=== PATIENT | male | born 1990 | race Caucasian/White ===

== ENCOUNTER 2024-10-19 08:44 | Outpatient (REF) | payer BC, SELFPAY ==
[2024-10-19 15:45] LABS: Influenza A PCR NEGATIVE (Negative); Influenza B PCR NEGATIVE (Negative); Resp Syncy Virus RNA Qual PCR NEGATIVE (Negative); SARS COV2 PCR INHOUSE NEGATIVE (Negative)
== END 2024-10-19 08:45 | disposition home or self-care (01) ==
LOC: HO.LAB 08:44
PROVIDERS: PCP Pediatrics; Visit Provider Physician Assistant
DX: R09.89 Other specified symptoms and signs involving the circulatory and respiratory systems (principal); Z13.9 Encounter for screening, unspecified; J02.9 Acute pharyngitis, unspecified; Z03.818 Encounter for observation for suspected exposure to other biological agents ruled out
CPT/HCPCS: 0241U; 87070; 87147; 87880

== ENCOUNTER 2024-10-19 08:44 | Outpatient (AMB) | payer BC, SELFPAY ==
[2024-10-19 08:48] VITALS: BP 110/70; PULSE 76; TEMP 37.3; O2SAT 98; BMI 20.4
--- NOTE | 2024-10-19 08:48 | AM.OFFWIN_ITS ---
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 at home covid test were negative Patient Tobacco Use Status: Never used Tobacco Accompanied by: Self / Same As Patient Allergies iron Allergy (Mild, Verified 10/19/24 08:53) Hives Do you need a note to return to daycare/school/sports/work: Yes HPI HPI Comments History of Present Illness Details History - The patient is a 34-year-old male pres enting with sore throat and body aches. - Symptoms began with fatigue 4 days ago , escalating to a sore throat and body aches by 3 days ago. - No significant nausea or vomiting was experienced. - Low-grade fevers occurred, peaking at 99.8?F. - The patient took several COVID-19 test s, all of which were negative. - Morning cough and congestion were note d, with symptoms resolving throughout the day. - Lightheadedness was noted during trave l to work, but no syncopal episodes occurred. - Patient reports discomfort in the neck , worsened by swallowing, along with a fullness in the voice. Physical Exam General: Cooperative, healthy appearing, comfortable and no acute distress Orientation/consciousness: Patient oriented x3 Limitations: No limitations Head: Normal to inspection Ears: Hearing grossly normal bilaterally, external ears normal and TM's normal bilaterally Nose: Normal external nose present, Normal nares present and No nasal discharge present Face and sinus: Normal facial exam and Yes sinuses nontender Mouth: Normal oral and palatal mucosa present and moist mucous membranes Throat: Yes tonsils normal, Yes uvula midline. Posterior oropharynx erythema, no exudates noted Eyes: Appearance normal, both eyes and all related structures Neck: Normal visual inspection, slight swelling noted Respiratory: Clear to auscultation bilaterally. Normal respiratory effort, able to speak in complete sentences, no respiratory distress, not tachypneic, no tripod positioning and no use of accessory muscles Cardiovascular: Regular rate and rhythm. Normal S1 and S2 Skin: No rashes or lesions noted Neuro: Patient oriented x3, reports lightheadedness Extremities: Normal to inspection and Yes no clubbing, cyanosis or edema PFSH Social History Patient Tobacco Use Status: Never used Tobacco Review of Systems Const All systems reviewed & are unremarkable except as noted in HPI and below Physical Exam Vital Signs: Last Vital Signs Temp 99.2 F 10/19/24 08:48 Pulse 76 10/19/24 08:48 BP 110/70 10/19/24 08:48 Pulse Ox 98 10/19/24 08:48 Oxygen Delivery Method Room Air 10/19/24 08:48 BMI result Body Mass Index 20.4 Results AMB Rapid Strep AMB Rapid Strep Negative Last Edit by Ke Kimble CMA on 10/19/24 09 :07 Results Reviewed Results Reviewed: Laboratory Last Values Strep Scn Rapid Clinic Negative 10/19/24 09:06 Assessment & Plan Assessment & Plan (1) URI, acute: Code(s): J06.9 - Acute upper respiratory infection, unspecified Plan: VSS, pt well appearing and PE unremarkable/no exudates on exam. I have sent a throat culture to definitively assess for strep infection, supplementing the negative rapid test in office today. Also, influenza, COVID-19, and RSV tests will be conducted, with results anticipated by today. For acute pharyngitis and viral symptoms, I recommend ibuprofen for throat pain and acetaminophen for fever management, with the addition of warm saltwater gargles. The patient indicates he works remotely; hence no work restrictions are necessary. Pending test results will guide further course of action. Patient was informed and verbally consented to the use of an ambient scribe for clinic note documentation during this visit Orders: Orders SARS-CoV2/FLU/RSV Today R09.89 - Other specified symptoms and signs involving the circulatory and respiratory systems AMB Rapid Strep Screen Today Z13.9 - Encounter for screening, unspecified Throat Culture Today J02.9 - Acute pharyngitis, unspecified Coding Level of Care Code New Pt Level 3 (67081) Diagnoses URI, acute J06.9
--- OUTSIDE RECORDS SUMMARY | 2024-10-19 09:20 | XMS_ITS | Encounter Summary ---
Author Organization [facility] Address [address] [place] [id number] Phone Care Team Providers Care Scabbler Name Role Phone Toni Grajeda MD Primary Care Provider Unavailabl e Encounter Details Date Type Department Care Team (Late st Contact Info) Description 06/15/2012 Documentation [facility] [place] Family Medicine [address] [place] [address] Family Medicine, Physician [address] [place] [address] Social History Tobacco Use Types Packs/Day Years Used Date Smoking Tobacco: Never Assessed Sex and Gender Information Value Date Recorded Sex Assigned at Not on file Legal Sex Male 4:46 PM EDT Gender Identity Not on file Sexual Orientation Not on file documented as of this encounter Plan of Treatment Not on file documented as of this encounter Visit Diagnoses Not on filedocumented in this encounter Care Teams Scabbler Relationship Specialty Start Date End Date Toni Grajeda MD PCP - General 03/07/17 documented as of this encounter
--- OUTSIDE RECORDS SUMMARY | 2024-10-19 09:20 | XMS_ITS | Encounter Summary ---
Author Organization [facility] Address [address] [place] [address] Phone Care Team Providers Care Paper Carrier Name Role Phone Toni Grajeda MD Primary Care Provider Unavailabl e Encounter Details Date Type Department Care Team (Late st Contact Info) Description 02/08/2013 Documentation [facility] [place] [address] [place] [address] Family Medicine, Physician [address] [place] [address] Social History Tobacco Use Types Packs/Day Years [...] on filedocumented in this encounter Care Teams Paper Carrier Relationship Specialty Start Date End Date Toni Grajeda MD PCP - General 03/07/17 documented as of this encounter
--- OUTSIDE RECORDS SUMMARY | 2024-10-19 09:20 | XMS_ITS | Encounter Summary ---
Author Organization [facility] Address [address] [place] [phone] Phone Care Team Providers Care Burr Mill Operator Name Role Phone Toni Grajeda MD Primary Care Provider Unavailabl e Encounter Details Date Type Department Care Team (Late st Contact Info) Description 03/13/2017 Conversion Encounter [facility] - [address] [id number] Social History Tobacco Use Types Packs/Day Years [...] on filedocumented in this encounter Care Teams Burr Mill Operator Relationship Specialty Start Date End Date Toni Grajeda MD PCP - General 03/07/17 documented as of this encounter
--- OUTSIDE RECORDS SUMMARY | 2024-10-19 09:20 | XMS_ITS | Encounter Summary ---
Author Organization [facility] Address [address] [place] [id number] Phone Care Team Providers Care Copy Cutter Name Role Phone Toni Grajeda MD Primary Care Provider Unavailabl e Encounter Details Date Type Department Care Team (Late st Contact Info) Description 07/18/2011 Documentation [facility] [place] Family Medicine [address] [place] [address] Family Medicine, Physician [address] [place] [address] Social History Tobacco Use Types Packs/Day Years [...] on filedocumented in this encounter Care Teams Copy Cutter Relationship Specialty Start Date End Date Toni Grajeda MD PCP - General 03/07/17 documented as of this encounter
--- OUTSIDE RECORDS SUMMARY | 2024-10-19 09:20 | XMS_ITS | Clinical Summary ---
Author Organization [facility] Address [address] [place] [address] Phone Care Team Providers Care Business Banking Representative Name Role Phone Toni Grajeda MD Primary Care Provider Unavailabl e Immunizations Immunization Administration Dates Next Due DTP 11/06/1993, 3,1992,04/19 DTaP 5 12/23/1996 H1N1 07/13/2009 Hep A, ped/adol 06/08/2012 Hep B, ped/adol 1992,1992,1992 Hib (PRP-T) 06/04/1993, 3,1992,04/19 IPV 06/08/2012 Influenza Split 07/05/2010 Influenza, injectable, trivalent 07/13/2009 MMR 12/23/1996,06/04/1993 Meningococcal Conj (Menactra) MCV4P 02/07/2010 OPV 12/23/1996, 4,1992,04/19 Td (adult) (MBL), 2 Lf tetan us toxoid, PF, adsorbed 03/20/2004 Tdap 07/13/2009 Unknown Vaccine 06/08/2012 Varicella 07/13/2009,12/21/1998 Family History Relation Name Status Comments Brother Alive Brother: Alive and well Father Alive Father: Alive a nd well Mother Alive Mother: Alive a nd well Sister Alive Sister: Alive a nd well Social History Tobacco Use Types Packs/Day Years Used Date Smoking Tobacco: Never Assessed Sex and Gender Information Value Date Recorded Sex Assigned at Not on file Legal Sex Male 4:46 PM EDT Gender Identity Not on file Sexual Orientation Not on file Last Filed Vital Signs Vital Sign Reading Time Taken Comments Blood Pressure 108/60 10/04/2011 12:00 AM EST Pulse 70 10/04/2011 12:00 AM EST Temperature 36.1 ??C (97 ??F) 12/03/2011 12:00 AM EDT Respiratory Rate - - Oxygen Saturation - - Inhaled Oxygen Concentration - - Weight 51.3 kg (113 lb) 12/03/2011 12:00 AM EDT Height - - Body Mass Index - - Plan of Treatment Health Maintenance Due Date Last Done Comments DTaP,Tdap,and Td Vaccines (7 - Td or Tdap) 07/13/2019 07/13/2009, 03/20/2004, 12/23/1996, Additional history exists Influenza Vaccines (#1) 2024 07/05/2010, 07/13 COVID-19 Vaccine ( season) 2024 Hepatitis B Vaccines Completed 1992, 1992, 1992 HIB Vaccines Completed 06/04/1993, 10/1992, 1992, Additional history exists MMR Vaccines Completed 12/23/1996, 06/04/1993 Varicella Vaccines Completed 07/13/2009, 12/21/1998 Meningococcal Vaccine Completed 02/07/2010 Hepatitis A Vaccines Aged Out 06/08/2012 No long er eligible based on patient's age to complete this topic IPV Vaccines Completed 06/08/2012, 11/26, 11/06/1993, Additional history exists HPV Vaccines Aged Out No longer eligi ble based on patient's age to complete this topic Men B Vaccine Aged Out No longer elig ible based on patient's age to complete this topic Pneumococcal Vaccine Aged Out No long er eligible based on patient's age to complete this topic Care Teams Business Banking Representative Relationship Specialty Start Date End Date Toni Grajeda MD PCP - General 03/07/17
== END 2024-10-19 09:33 | disposition home or self-care (01) ==
PROVIDERS: PCP Pediatrics; Visit Provider Physician Assistant
DX: Z13.9 Encounter for screening, unspecified (principal); J06.9 Acute upper respiratory infection, unspecified